=== PATIENT | female | born 1940 | race Asian ===

== ENCOUNTER 2023-08-04 22:44 | Emergency (ER) | payer MEDICARE ==
[~2023-08-04] VITALS: Ht 149.9 cm; Wt 61.2 kg
[2023-08-04] MEDS ORDERED: ATOR10TA PO (22:55)
[2023-08-04] MEDS ORDERED: VITA-287 PO (22:55)
[2023-08-04] MEDS ORDERED: HYDR12.55 PO (22:55)
[2023-08-04] MEDS ORDERED: VITA250012 PO (22:55)
[2023-08-04] MEDS ORDERED: LOSA50TA39 PO (22:55)
[2023-08-04] MEDS ORDERED: MECL-159 PO (22:55)
[2023-08-04] MEDS ORDERED: TURM1CAP2 PO (22:55)
[2023-08-04] MEDS ORDERED: DIAZ5TAB PO (22:55)
[2023-08-04 23:17] LABS: BASOPHILS % (AUTO) 0.4 % (0.0-2.0); EOSINOPHILS # (AUTO) 0.7 K/uL (0.0-0.7); EOSINOPHILS % (AUTO) 7.4 % (0.0-7.0); HEMATOCRIT 36.6 % (31.2-41.9); HEMOGLOBIN 12.3 g/dL (10.9-14.3); LYMPHOCYTES % (AUTO) 21.1 % (20.5-51.5); MEAN CORPUSCULAR HEMOGLOBIN 30.9 uug (24.7-32.8); MEAN CORPUSCULAR HGB CONC 34 g/dL (32.3-35.6); MONOCYTES # (AUTO) 0.4 K/uL (0.1-1.30); MONOCYTES % (AUTO) 4.1 % (0.0-11.0); NEUTROPHILS # (AUTO) 6.5 K/uL (1.8-8.9); PLATELET COUNT (AUTO) 280 K/uL (179-408); RED BLOOD CELL COUNT(AUTO) 3.98 MIL/uL (3.63-4.92); RED CELL DISTRIBUTION WIDTH 13.3 % (12.3-17.7); WHITE BLOOD COUNT (AUTO) 9.6 K/uL (3.8-11.8)
[2023-08-04 23:21] LABS: DIFFERENTIAL COMMENT 1
[2023-08-04 23:24] LABS: CALCIUM 10.2 mg/dL (8.5-10.1); CARBON DIOXIDE 27 mmol/L (21-32); CHLORIDE 95 mmol/L (98-107); CREATININE 0.8 mg/dL (0.6-1.3); GLUCOSE 120 mg/dL (74-106); POTASSIUM 3.5 mmol/L (3.5-5.1); SODIUM SERUM 133 mmol/L (136-145); UREA NITROGEN, BLOOD 24 mg/dL (7-18)
[2023-08-04 23:32] LABS: ALANINE AMINOTRANSFERASE 30 U/L (14-59); ALBUMIN 3.8 g/dL (3.4-5.0); ALKALINE PHOSPHATASE 69 U/L (50-136); ASPARTATE AMINOTRANSFERASE 24 U/L (15-37); BILIRUBIN,DIRECT 0.1 mg/dL (0.0-0.2); BILIRUBIN,TOTAL 0.3 mg/dL (0.2-1.0); TOTAL PROTEIN, SERUM 7.5 g/dL (6.4-8.2)
[2023-08-04] MEDS ORDERED: diphenhydrAMINE 25 MG CAP PO ONE ×2 (23:45→23:56)
[2023-08-04] MEDS ORDERED: PROCHLORPERAZINE MALEATE 5 MG TABLET PO ONE (23:45)
[2023-08-04] MEDS ORDERED: PROCHLORPERAZINE MALEATE 5 MG TABLET ONE (23:56)
[2023-08-05] MEDS ORDERED: PROC5TAB59 PO (02:54)
[2023-08-05 02:56] VITALS: BP 159/84; O2SAT 96
== END 2023-08-05 02:57 | disposition home or self-care (01) ==
LOC: ER 22:46
DX: R42 Dizziness and giddiness (principal); E78.5 Hyperlipidemia, unspecified; Z79.899 Other long term (current) drug therapy
CPT/HCPCS: 99285; 70450; 71045; 80076; 80048; 85025; 84484; 36415; 93005; Q0163; J8499; A4606; A4663